=== PATIENT | female | born 1950 | race Caucasian/White ===

== ENCOUNTER 2016-09-10 11:43 | Emergency (ER) | payer MEDICARE, OTHER ==
[~2016-09-10] VITALS: Ht 137.2 cm; Wt 81.8 kg
[~2016-09-10 11:43] MED LIST: ACET325T51 PO; ALBU6.7H INH; CARB1TAB14 PO; OMEP20CA11 PO; PHEN64.8 PO; SALM50DI INH
[2016-09-10 11:46] VITALS: BP 158/68; PULSE 92; RESP 18; O2SAT 98
--- NOTE | 2016-09-10 12:10 | ED.REPORT ---
HPI-Chest Pain 40 and Over Date of Service September 10, 2016 ED Provider: The patient is a 66 year old female with history of asthma and epilepsy who presents to the emergency department complaining of chest pain that began 2 hours ago while she was sitting at rest. She describes her pain as a pressure. The pain radiates into her left shoulder and through to her back. The pain is worse with deep breaths. She has also noticed diaphoresis. She took 81 mg aspirin x2 prior to arrival. She has not had similar symptoms in the past. She denies history of cardiac disease. Nursing Notes Stated Complaint: POSS HEART ATTACK Chief Complaint: Dysrhythmia/Cardiac Nursing Notes Reviewed: Yes Allergies: Coded Allergies: Iodinated Contrast Media - Oral and (Verified Allergy, Intermediate, TROUBLE BREATHING, 09/10/16) NSAIDS (Non-Steroidal Anti-Inflamma (Verified Allergy, Intermediate, BREATHING PROBLEMS, 09/10/16) morphine (Verified Allergy, Intermediate, 09/10/16) aspirin (Verified Allergy, Mild, GI BLEEDS, 09/10/16) PT DOES NOT TAKE DUE TO GI BLEED. Penicillins (Verified Allergy, Unknown, 09/10/16) Sulfa (Sulfonamide Antibiotics) (Verified Allergy, Unknown, 09/10/16) ibuprofen (Verified Allergy, Unknown, 09/10/16) meperidine (Verified Allergy, Unknown, 09/10/16) Scheduled Carbidopa/Levodopa 25-100 mg (Carbidopa/Levodopa 25-100 mg) 1 Each Tablet 1 TABLET PO TID Omeprazole (Omeprazole) 20 Mg Capsule.dr 20 MG PO DAILY Phenobarbital (Phenobarbital) 64.8 Mg Tablet 1-2 TAB PO DAILY Salmeterol Xinafoate (Serevent Diskus) 50 Mcg/Puff Inhaler 1 PUFF INH BID Scheduled PRN Acetaminophen (Acetaminophen) 325 Mg Tablet 325-650 MG PO Q4H PRN PRN For Pain Acetaminophen/Codeine 300-30mg (Tylenol/Codeine #3) 1 Each Tablet 1 TABLET PO Q4H PRN PRN Pain Albuterol Sulfate (Proventil HFA Inhaler) 6.7 Gm Hfa.aer.ad 1 PUFF INH Q4 PRN PRN For Shortness of Breath Tizanidine (Tizanidine) 2 Mg Tablet 2 MG PO TID PRN PRN For Pain General Time Seen by MD: 12:09 Chief Complaint Chest pain Hx Obtained From: Patient Arrived By: Walk-in Sudden in Onset?: Yes Onset Occurred: 1 - 4 hours ago Symptom Duration: Since onset Location: : Chest left Quality: Pressure Radiation: : Back: Shoulder left Severity: Current: Moderate Severity: Maximum: Severe Recent Healthcare: No recent doctor visit, No recent hospitalization Similar Sx Previous: No Past Medical History Past Medical History Notes: PCP: Dr. 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 Physical Exam Initial Vital Signs Vital Signs (First) Date Time Temp Pulse Resp B/P Pulse Ox O2 Delivery O2 Flow Rate FiO2 09/10/16 11:46 36.7 92 18 158/68 98 Room Air Initial VS: Reviewed Head / Eyes: Atraumatic, Normocephalic, PERRL ENT: Mucous membranes moist, Conjunctiva normal, No scleral icterus Neck: Supple, Non-tender, Full range of motion Lymphatic: No lymphadenopathy Extremities: Vascular intact, Neuro intact, No swelling, No tenderness Skin: Warm, Dry, No cyanosis Neurologic: Alert, Oriented, Nonfocal Psychiatric: Mood/affect normal, Behavior normal, Normal thought content General/Constitutional: Awake, Alert, No acute distress, Well appearing Appearance / Presentation: Positive: Obese Respiratory / Chest: Breath sounds NL, Breath sounds = bilat, No respiratory distress, No rales, No rhonchi, No wheezing, No retractions Left posterior rib cage tenderness. Left chest wall tenderness. Increased pain with movement of her left arm. Cardiovascular: Heart rate NL, Regular rhythm, Heart sounds NL, No gallop, No murmurs, No rubs, Peripheral circulation NL, Pulses = bilaterally, No gross BP differential Abdomen: Atraumatic, Soft, Non-tender, McBurney's non-tender, No guarding, No rebound, BS normoactive, No distention, No hernia, No palpable mass Interpretation & Diagnostics Lab Results Interpretation Result Diagram: 09/10/16 1210 09/10/16 1305 Test 09/10/16 12:10 09/10/16 13:05 White Blood Count 4.8th/mm3 (3.8-10.1) Red Blood Count 4.63mil/mm3 (3.90-5.20) Hemoglobin 14.6g/dL (12.0-15.6) Hematocrit 42.8% (35.0-46.0) Mean Corpuscular Volume 92.4fL (81-100) Mean Corpuscular Hemoglobin 31.5pg (27.0-35.0) Mean Corpuscular Hemoglobin Concent 34.1% (32.0-37.0) Red Cell Distribution Width 12.5% (12.3-15.4) Platelet Count 209bil/L (150-400) Neutrophils (%) (Auto) 39.8% (40-74) Lymphocytes (%) (Auto) 40.2% (14-46) Monocytes (%) (Auto) 16.9% (4-12) Eosinophils (%) (Auto) 2.3% (0-5) Basophils (%) (Auto) 0.8% (0-3) D-Dimer < 0.50mg/L FEU (<0.50) Sodium Level 138mEq/L (134-144) Potassium Level 5.3mEq/L (3.5-5.2) Chloride Level 99mEq/L (97-108) Carbon Dioxide Level 24mmol/L (18-29) Blood Urea Nitrogen 10mg/dL (8-27) Creatinine 0.48mg/dL (0.57-1.00) Estimat Glomerular Filtration Rate 184mL/min (>59) Glucose Level 114mg/dL (60-99) Calcium Level 9.3mg/dL (8.5-10.1) Magnesium Level 2.1mg/dL (1.6-2.6) Total Bilirubin 0.3mg/dL (0.0-1.2) Aspartate Amino Transf (AST/SGOT) 41U/L (0-50) Alanine Aminotransferase (ALT/SGPT) 22U/L (0-32) Alkaline Phosphatase 61U/L (25-165) Troponin T < 0.010ug/L (0.0-0.011) Total Protein 7.3g/dL (6.4-8.4) Albumin 4.1g/dL (3.4-5.0) ECG Interpretation ECG Interpretation: Normal sinus rhythm with a rate of 87 Time: 11:47 Interpreted by: ED physician X-Ray Chest Interpretation Chest Xray Interpretation: IMPRESSION: Cardiomegaly without overt heart failure. No definite pneumonia. Dictated by: Cornelius Lennon M.D. on 09/10/2016 at 11:25 Interpretation / Wet Read by: Interpret - Radiologist Re-Eval/Medical Decision Med Decision/Clinical Course Patient has focal reproducible chest wall pain, this does not seem consistent with acute coronary syndrome or other life-threatening pathology. We will discharge with Tylenol with codeine and tizanidine. Return and follow-up precautions are given. Source of Hx: Old records, Friend Time of Eval: 14:13 Re-Evaluation/Progress Note: Rechecked the patient. Discussed results, diagnosis, and plan for discharge. All questions were addressed. Counseled Regarding: Diagnosis, Lab results, Need for follow-up, When/why to return to ED Discharge & Departure Primary Impression: Musculoskeletal chest pain Disposition: Home Discharge Condition All VS Reviewed: Yes Condition: Stable Additional Instructions: Thank you for entrusting us with your care today. Your workup today included: labs, EKG, and a chest x-ray. Your results are reassuring. There is no evidence of a heart attack or infection. Your pain is most consistent with musculoskeletal pain. You can take Naproxen every 12 hours as needed for your pain. Followup with your regular doctor in 1 week if your pain is not improving. Seek care sooner for any new or concerning symptoms. Referrals: Asael Diana DO (PCP) [place] Attestation Portions of this note were transcribed by Alyssa Ruff. I, Dr. Adler personally performed the history, physical exam and medical decision-making; I reviewed and confirmed the accuracy of the information in the transcribed note. Signed by: Mello Estevez, 09/10/2016 at 1430. copies to: Asael Diana Timothy S DO September 10, 2016 12:10 Alyssa Ruff September 10, 2016 12:17
[2016-09-10 12:14] LABS: BASOPHILS % (AUTO) 0.8 % (0-3); EOSINOPHILS % (AUTO) 2.3 % (0-5); MONOCYTES % (AUTO) 16.9 % (4-12); Mean Corpuscular Hemoglobin 31.5 pg (27.0-35.0); Mean Corpuscular Volume 92.4 fL (81-100); NEUTROPHILS % (AUTO) 39.8 % (40-74); Platelet Count 209 bil/L (150-400)
[2016-09-10] MEDS ORDERED: fentaNYL-PF 50 mCg/mL 2 mL Inj IVPUSH PRN (12:15)
--- NOTE | 2016-09-10 12:26 | DRSVH ---
PROCEDURE: X-RAY CHEST ONE VIEW, PORTABLE ([id number]) INDICATIONS: Chest Pain. TECHNIQUE: One view of the chest was acquired. COMPARISON: None. FINDINGS: Surgical changes and devices: None. Lungs and pleura: No pleural effusions or pneumothorax. Lungs are clear. Mediastinum: Mediastinal contours appear normal. Heart size is enlarged. Bones and chest wall: No suspicious bony lesions. Overlying soft tissues appear unremarkable. IMPRESSION: Cardiomegaly without overt heart failure. No definite pneumonia. Dictated by: Cornelius Lennon M.D. on 09/10/2016 at 11:25 Approved by: Cornelius Lennon M.D. on 09/10/2016 at 11:25
[2016-09-10 12:34] VITALS: BP 145/74; PULSE 82; RESP 23; O2SAT 98
[2016-09-10 13:56] LABS: TROPONIN T < 0.010 ug/L (0.0-0.011)
[2016-09-10 14:06] LABS: Magnesium 2.1 mg/dL (1.6-2.6)
[2016-09-10] MEDS ORDERED: ACET1TAB12 PO (14:45)
[2016-09-10 14:57] VITALS: BP 136/47; PULSE 76; RESP 13; O2SAT 98
[2016-09-10 15:12] VITALS: BP 136/47; PULSE 76; RESP 13; O2SAT 98
[2016-09-10] MEDS ORDERED: TIZA2TAB3 PO (15:12)
== END 2016-09-10 15:14 | disposition home or self-care (01) ==
LOC: SED 11:43
DX: R07.89 Other chest pain (principal); J45.909 Unspecified asthma, uncomplicated; K21.9 Gastro-esophageal reflux disease without esophagitis; Z88.6 Allergy status to analgesic agent; Z88.5 Allergy status to narcotic agent; Z88.0 Allergy status to penicillin; Z88.8 Allergy status to other drugs, medicaments and biological substances
CPT/HCPCS: 36415; 71010; 80053; 83735; 84484; 85025; 85378; 93005; 96374; 99285; J3010